=== PATIENT | male | born 1975 | race Caucasian/White ===

== ENCOUNTER 2016-06-05 07:07 | Inpatient (IN) | payer OTHER ==
--- NOTE | 2016-06-05 07:32 | PDOC ---
History of Present Illness - General Chief Complaint: Pain Stated Complaint: PAIN Time Seen by Provider: 06/05/16 07:26 - History of Present Illness Initial Comments: 06/05/16 08:06 Patient is a 41 year old male with no PMHx who presents to the ED complaining of a left hernia for the last year that progressively worsened last night around 23:00. Patient states the pain has been intermittent occurring every 10- 15 minutes lasting for 3 minutes. Patient describes the pain as a pulling sensation with a severity of 9/10. Patient reports the pain is worse when laying and slightly alleviated when laying down. He denies fever, chills, nausea, vomiting, abdominal pain He denies chest pain, shortness of breath, palpitations He denies dysuria, frequency, hematuria, urgency He denies headaches, dizziness, loss of consciousness, acute visual changes PMHx: None PSHx: None Meds: None Allergies: NKDA Social: Denies alcohol, drugs, or smoking Past History - Past Medical History Allergies/Adverse Reactions: Allergies Allergy/AdvReac Type Severity Reaction Status Date / Time No Known Allergies Allergy Verified 06/05/16 07:20 Other medical history: DENIES - Psycho/Social/Smoking Cessation Hx Anxiety: No Suicidal Ideation: No Smoking History: Never smoked Hx Alcohol Use: Yes (SOCIAL) Drug/Substance Use Hx: No Substance Use Type: None *Physical Exam - Vital Signs Last Vital Signs Temp Pulse Resp BP Pulse Ox 98.1 F 93 H 20 141/83 97 06/05/16 07:17 06/05/16 07:17 06/05/16 07:17 06/05/16 07:17 06/05/16 07:17 Medical Decision Making - Medical Decision Making 06/05/16 08:02 Patient is a 41 year old male with no PMHx who presents to the ED complaining of left groin pain for the last year but worsened last night at 2300. Differential diagnosis include but not limited to Direct hernia, indirect hernia , strangulated or obstructed hernia. ED Course and Treatment -CBC -CMP -PT/INR -Lipase -Type and Screen -Morphine -1 Bolus IV NS -Zofran 06/05/16 08:19 -Labs pending -Patient evaluated by Surgery who will admit patient to their services for incarcerated hernia. *DC/Admit/Observation/Transfer Diagnosis at time of Disposition: Incarcerated hernia - Discharge Dispostion Admit: Yes
[2016-06-05] MEDS ORDERED: SODIUM CHLORIDE 1,000 ML IV ONE (08:00)
[2016-06-05] MEDS ORDERED: morphine CARPU-JECT 4 MG/1 ML DISP.SYRIN IVPUSH ONE (08:00)
[2016-06-05] MEDS ORDERED: ONDANSETRON 4 MG/2 ML VIAL IVPB ONE (08:00)
[2016-06-05] MEDS ORDERED: ONDANSETRON 4 MG/2 ML VIAL ONE (08:12)
[2016-06-05] MEDS ORDERED: morphine CARPU-JECT 4 MG/1 ML DISP.SYRIN ONE (08:12)
--- NOTE | 2016-06-05 08:22 | PN ---
Progress Note (short form) - Note Progress Note: surgery pt seen and examined. full h&p dictated. 41m with known lih, presents with severe left groin pain and nausea since last night to the [facility] ER. On exam incarcerated, tender, lih. Plan- pt in severe pain. will admit and plan for urgent surgical repair. small rih noted as well. Will attempt laparscopic repair or left side, if successful will repair right as well, otherwise will need open left repair. will give ancef prophylaxis
[2016-06-05] MEDS ORDERED: CEFAZOLIN 1 GM in DEXTROSE 5%-WATER - 50 ML IVPB ONE (08:23)
[2016-06-05 08:33] LABS: BASOPHIL 0.7 % (0-2.0); EOSINOPHIL 0.7 % (0-4.5); MCH 31.4 pg (25.7-33.7); MCHC 35.1 g/dl (32.0-35.9); MEAN CELL VOLUME 89.4 fl (80-96); MEAN PLT VOLUME 8.5 fl (7.5-11.1); NEUTROPHILS 61.2 % (42.8-82.8); PLATELET COUNT 192 K/MM3 (134-434); WHITE BLOOD COUNT 4.5 K/mm3 (4.0-10.0)
[2016-06-05] MEDS ORDERED: CEFAZOLIN (PRE-DOCKED) 50 ML IVPB ONE (08:37)
--- NOTE | 2016-06-05 08:42 | PDOC ---
Attending Attestation - Resident Resident Name: Delia Perez - ED Attending Attestation I have performed the following: I have examined & evaluated the patient, The case was reviewed & discussed with the resident, I agree w/resident's findings & plan, Exceptions are as noted - HPI HPI: 06/05/16 08:40 Healthy 41-year-old male presents with acute on chronic left inguinal pain and swelling. Has had intermittent symptoms for about one year, last night developed same symptoms onset around 11 PM, but progressive and becoming more severe. No objective symptoms. - Physicial Exam PE: 06/05/16 08:41 Abdomen is soft and nondistended, tender in the left inguinal region with palpable hernia, reducible with pressure. No lymphadenopathy, exam is otherwise normal. - Medical Decision Making 06/05/16 08:41 Patient seen and evaluated with the resident. I agree with the overall evaluation, assessment, and management with the following summary of visit: 41-year-old male with left inguinal hernia, reducible on exam now, still in quite a bit of discomfort, has no objective symptoms at this time. Check labs Pain control, nausea control Seen by Dr. Alvarado of Gen. surgery, will bring to the OR for repair
[2016-06-05 08:49] LABS: INR 0.96 (0.82-1.09); PROTHROMBIN TIME (PATIENT) 10.5 SEC (9.98-11.88)
[2016-06-05 08:56] LABS: ALBUMIN 4.1 g/dl (3.4-5.0); ALK PHOS 87 U/L (45-117); ANION GAP 7 (8-16); BILIRUBIN,TOTAL 0.5 mg/dL (0.2-1.0); CALCIUM 8.9 mg/dL (8.5-10.1); CO2 28 mmol/L (21-32); CREATININE 0.9 mg/dL (0.7-1.3); GLUCOSE,RANDOM 97 mg/dL (74-106); SGOT/AST 33 U/L (15-37); SGPT/ALT 57 U/L (12-78); TOT PROT 7.5 g/dl (6.4-8.2)
--- NOTE | 2016-06-05 09:01 | HP ---
DATE OF ADMISSION: 06/05/2016 ADMITTING DIAGNOSIS: Incarcerated left inguinal hernia, left groin pain, nausea, plus right inguinal hernia. BRIEF HISTORY: This is a 41-year-old male with 1-year history of a symptomatic left inguinal hernia. He states that last night, he developed severe pain in his left groin with nausea. The pain persisted throughout the night and therefore he presented to the [facility] Emergency Room where he was seen and evaluated by me. He states that the pain has only worsened. He denies vomiting, denies recent weight loss, denies blood in his stool. He has never had a colonoscopy. PAST MEDICAL HISTORY: Negative. PAST SURGICAL HISTORY: Nil. MEDICATIONS: He takes no medications. ALLERGIES: He has no known drug allergies. FAMILY HISTORY: Negative for malignancy in the immediate family. REVIEW OF SYSTEMS: General: Denies fatigue or malaise. Cardiac: Denies chest pain or palpitations. Respiratory: Denies shortness of breath or wheeze. Gastrointestinal: As per HPI. Genitourinary: Denies dysuria. Musculoskeletal: Denies joint pain or joint swelling. Psychiatric: Denies anxiety, depression, or hearing voices. PHYSICAL EXAMINATION: General: This is a well-developed, well-nourished 41-year-old male in no distress. Vital signs: He is afebrile. His vital signs are stable. HEENT: His head is normocephalic. His sclerae anicteric. Neck: Supple. Chest: Clear. Abdomen: Soft, nontender. No surgical scars. In his left groin, he has an incarcerated left inguinal hernia that is quite tender. There are no overlying skin changes. It is not reducible. He also has a small asymptomatic right inguinal hernia that is reducible. His testicles are normal in a normal position. Extremities: Have no clubbing, cyanosis, or edema. REVIEW OF HIS LABORATORY: Currently pending. ASSESSMENT: This is a 41-year-old male with a painfully incarcerated left inguinal hernia that has been occurring for the past 8 hours. At this point, because of the patients severe pain and the possibility of bowel involvement, we will admit him to the hospital as an inpatient and will plan for urgent surgical repair. I would recommend a laparoscopic approach for this left inguinal hernia even though it is more difficult laparoscopically in cases of incarceration. I would carry the benefit of possibly being able to repair his right inguinal hernia at the same time. He is only 41 years old and eventually this will likely become symptomatic, as well. If the laparoscopic repair is infeasible, then we will convert to an open repair of the left inguinal hernia only. Risks and benefits of the surgery have been explained to the patient in detail. These are including, but not limited to, the possibility of conversion to open, the possibility of injury to viscera or bladder, the possibility of decreased fertility, the possibility of chronic pain, the possibility of blood loss requiring blood transfusion, possibility of future recurrence, possibility of future obstruction, plus a multitude of medical risks including, but not limited to, cardiac, neurologic, pulmonary, and vascular complications, even . Patient understands this and is agreeable to surgery. He also understands that this repair will require a mesh placement for repair to be effective. He understands that this is a foreign body and that will be with him the rest of his life. He also understands that there are risks of mesh migration, mesh infection, and mesh malfunction, and he assumes those risks. At this point, he will Ancef prophylaxis prior to incision. He will be admitted and plans are being made now for surgery. DO POONAM VARELA/[id number]
[2016-06-05] MEDS ORDERED: ceFAZolin SODIUM 1 GM VIAL ONE (10:37)
[2016-06-05] MEDS ORDERED: PROPOFOL 20 ML ONE (10:37)
[2016-06-05] MEDS ORDERED: ROCURONIUM BROMIDE 50 MG/5 ML VIAL ONE ×2 (10:37→11:37)
[2016-06-05] MEDS ORDERED: KETOROLAC TROMETHAMINE 30 MG/1 ML VIAL ONE (10:37)
[2016-06-05] MEDS ORDERED: SODIUM CHLORIDE 0.9% P/F 10 ML VIAL IJ ONE (10:37)
[2016-06-05] MEDS ORDERED: MIDAZOLAM HCL 2 MG/2 ML SINGLE DOSE VIAL ONE (10:37)
[2016-06-05] MEDS ORDERED: DEXAMETHASONE SOD PHOSPHATE 4 MG/1 ML VIAL ONE (10:37)
[2016-06-05] MEDS ORDERED: ceFAZolin SODIUM 1 GM VIAL IVPB ONE (11:08)
[2016-06-05] MEDS ORDERED: GLYCOPYRROLATE 0.2 MG/1 ML VIAL ONE (12:02)
[2016-06-05] MEDS ORDERED: NEOSTIGMINE METHYLSULFATE 0.5 MG/ML - 10 ML MDV ONE (12:03)
[2016-06-05] MEDS ORDERED: oxyCODONE HCL 5 MG TABLET PO PRN (12:28)
[2016-06-05] MEDS ORDERED: morphine CARPU-JECT 4 MG/1 ML DISP.SYRIN IVPB PRN (12:28)
[2016-06-05] MEDS ORDERED: ACETAMINOPHEN 325 MG TABLET (FP) PO PRN (12:28)
[2016-06-05] MEDS ORDERED: ONDANSETRON 4 MG/2 ML VIAL IVPB PRN (12:28)
[2016-06-05] MEDS ORDERED: IBUPROFEN 800 MG/8 ML IJ IVPB PRN (12:29)
[2016-06-05] MEDS ORDERED: D5-1/2NS+20 MEQ KCL - 1,000 ML IV SCH (12:30)
[2016-06-05 16:24] VITALS: BMI 29.2
--- NOTE | 2016-06-05 17:10 | OP ---
DATE OF OPERATION: 06/05/2016 PREOPERATIVE DIAGNOSIS: Acute incarceration left inguinal hernia. POSTOPERATIVE DIAGNOSIS: Incarcerated left inguinal hernia, right indirect inguinal hernia. PROCEDURE: Laparoscopic repair of incarcerated left inguinal, laparoscopic repair of right inguinal hernia. Both hernias done with mesh. SURGEON: Kyle Schroeder M.D. SENIOR INVESTMENT MANAGER: None. ANESTHESIA: Gonzalo Mcgee M.D. (general) ESTIMATED BLOOD LOSS: Minimal. SPECIMEN: None. PROCEDURE: This is a 41-year-old gentleman admitted through the emergency room with the acute onset of a lump and swelling and pain in the left groin region. He had left inguinal hernia, which was unreducible. He is here now for operative repair. Patient is identified, and appropriately positioned on operating room table. After placement of general anesthesia, and abdomen prepped and draped in the usual sterile fashion with Chloraprep. An infraumbilical incision was made, deepened through the subcutaneous tissue. The fascia of the rectus muscle on the left identified, divided sharply, and the muscle split. Under direct vision and dissector balloon, followed by a structural balloon placed. Also under direct vision an 11-mm suprapubic port placed. The following structures on the left side identified: pubic tubercle, Brandan ligament, inferior epigastric vessels, spermatic cord, and lateral abdominal wall. During this dissection, patient is noted to have an incarcerated direct inguinal hernia containing fat. He also had an incarcerated indirect inguinal hernia containing portion of fat and what appeared to be bowel. This indirect sac reduced back into preperitoneal space with moderate size cord lipoma. A 4x6 piece of Versatex mesh was keyhole placed through the suprapubic port site. The mesh wrapped around the cord structure laterally to reconstruct the internal ring. Laterally , mesh anchored to the anterior and lateral abdominal wall. Medially, mesh anchored to anterior abdominal wall, pubic tubercle, and Brandan ligament. Upon completion of left side, similar structure on the right side identified. The right side was attenuated, but no actual defect. He had an incarcerated indirect inguinal hernia containing fat, this reduced back into the preperitoneal space. Another 4x6 piece of Versatex mesh was keyhole placed through the suprapubic port site. The mesh wrapped around the cord structure laterally to reconstruct the internal inguinal ring. Laterally, the mesh anchored to the anterior abdominal wall and lateral abdominal wall. There was good overlap in the midline. All anterior abdominal wall and lateral abdominal wall anchors placed under direct vision. The anchoring system was the [employer]idien deep purchase Absorbatack. The preperitoneal space, desufflated under direct vision. The fascia at the suprapubic port site, and infraumbilical port site were approximated with interrupted 0 Vicryl suture. All skin closed with 4-0 subcuticular Biosyn followed by Dermabond. At the conclusion of this case, sponge and instrument counts were correct. ATTESTATION: Brief operative note handwritten on the preprinted form. [facility] queried prior to giving any narcotics. Juliano RENDON [id number] MTDD
--- NOTE | 2016-06-06 08:33 | PN ---
Progress Note (short form) - Note Progress Note: Pot op day#1.S/P Laproscopic bilateral inguinal hernia repair under GA uneventful.Patient stable.No any anesthesia related problem.Patient Dc from the anesthesia care.
[2016-06-06 08:42] VITALS: BP 104/70; PULSE 70; TEMP 98.5
[2016-06-06] MEDS ORDERED: ENOXAPARIN NA (PORCINE) 40 MG/0.4 ML DISP.SYRIN SQ SCH (10:00)
[2016-06-06] MEDS ORDERED: PANTOPRAZOLE SODIUM 40 MG in SODIUM CHLORIDE 100 ML IVPB SCH (10:00)
[2016-06-06] MEDS ORDERED: PANTOPRAZOLE SODIUM 40 MG/100 ML PRE-DOCKED IVPB SCH (10:00)
== END 2016-06-06 09:42 | disposition home or self-care (01) | DRG 228 ==
LOC: JER 07:07 → JASUSAT 08:30 → J5S 08:35
PROVIDERS: ADMIT Surgery; ATTEND Surgery
PROC: 0YUA4JZ Supplement Bilateral Inguinal Region with Synthetic Substitute, Percutaneous Endoscopic Approach (ICD-10-PCS; principal; 2016-06-05 10:00)
DX: K40.00 Bilateral inguinal hernia, with obstruction, without gangrene, not specified as recurrent (principal)
CPT/HCPCS: 36415; 80053; 83690; 85025; 85610; 86850; 86900; 86901; 94010; 94760; 99285-25